=== PATIENT | female | born 1940 ===

== ENCOUNTER 2023-07-20 12:37 | Emergency (ER) | payer OTHER, SELFPAY ==
[2023-07-20 12:39] VITALS: BP 182/105
[2023-07-20 13:45] LABS: % Basophils 0.2 % (0-2); % Eosinophils 0.1 % (0-6); % Immature Granulocytes 0.5 % (0-0.5); % Lymphocytes 10.9 % (20.5-51.1); % Monocytes 8.1 % (1.7-9.3); % Neutrophils 80.2 % (42.2-75.2); Absolute Lymphocytes 0.9 10^3/uL (1.2-3.4); Absolute Monocytes 0.7 10^3/uL (0.1-0.6); Absolute Neutrophils 6.4 10^3/uL (1.4-6.5); Hemoglobin 14.6 g/dL (12.0-16.0); Mean Corp Hgb Conc. 35.6 g/dL (33.0-37.0); Mean Corpuscular Hgb 31.5 pg (27.0-31.0); Mean Corpuscular Volume 88.6 fL (81.0-99.0); Nucleated Red Blood Cells % 0 %; Platelet Count 141 10^3/uL (130-400); Red Blood Cell Count 4.63 10^6/uL (4.20-5.40); Red Cell Dist. Width 12.3 % (11.5-14.5)
[2023-07-20 14:07] LABS: ALT (SGPT) 36 U/L (0-35); AST (SGOT) 34 U/L (14-36); Albumin 3.9 g/dl (3.5-5.0); Alkaline Phosphatase 59 U/L (38-126); Blood Urea Nitrogen 15 mg/dl (7-17); Calcium 9.1 mg/dl (8.4-10.2); Carbon Dioxide 27 mmol/L (22-30); Chloride 104 mmol/L (98-107); Glucose 147 mg/dl (70-99); Potassium 3.6 mmol/L (3.5-5.1); Sodium 136 mmol/L (135-145); Total Bilirubin 2.5 mg/dl (0.2-1.3); Total Protein 7.1 g/dl (6.3-8.2); eGFR > 60.00
--- NOTE | 2023-07-20 14:38 | ED.GENMED ---
History of Present Illness
General
Chief Complaint: Fall
Source: patient and family (Son and [id number] at bedside)
Exam Limitations: none
Time Seen by Provider: 07/20/23 13:01
Nursing documentation reviewed up to this point in time: agreed with
Travel History
Have you had any contact with someone who has COVID-19?: No
Do you have any symptoms of coronavirus? Fever > 100 degrees, chills, cough, shortness of breath, sore throat, loss of taste or smell, muscle aches, or headache?: No
History of Present Illness
History of Present Illness:
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 Family states she typically ambulates well independently without a walker or cane. She lives with her son and [id number]
who are at the bedside. Pt states 2 days ago, she was in kitchen, throwing something away, it missed the can, she leaned over to pick it up and lost her balance and fell. [id number] was in the kitchen but turned the other way, when she turned
around the patient was laying on the floor on her right side to back. There was no loss of consciousness. Her son arrived moments later, helped her up to the chair.
Family state since fall she's been ambulating, doing stairs, etc but her balance seems 'worse' and she's developed a raspy voice past 2 days and they are concerned for pneumonia
There has been no cough, fever, n/v/d/c.
Pt denies H/A, change in vision, she does say left side of neck hurts since the fall.
Past History
Past History
ED Past Medical History: Arrthythmia (Afib on Eliquis), CVA and Hypercholesterolemia
ED Past Surgical History: Gynecological (Hysterectomy)
Social History
Tobacco: Non-smoker
Alcohol: None
Living: with family
Review of Systems
Review of Systems
Allergies reviewed?: Yes
All Other Systems: ROS reviewed and negative except as documented in HPI and ROS
Constitutional: Denies fever
Respiratory: Denies trouble breathing
Cardiac: Denies chest pain, palpitations or syncope
ABD/GI: Denies abdominal pain, nausea, vomiting or diarrhea
: Reports frequency; Denies dysuria, flank pain, incontinence, difficulty voiding or urgency
Musculoskeletal: Reports neck pain (left side neck); Denies edema or back pain
Skin: Reports other (small bruise right lower leg)
Neurological: Denies dizzy, headache, weakness or numbness
Phy Exam
Physical Exam
Physical Exam:
GENERAL: No acute distress. A&Ox3. elderly and frail
CONSTITUTIONAL: Afebrile.
EYES: PERRL, conjunctivae normal
Neck: Supple
ENMT: moist mucus membranes, Pharynx nl
RESPIRATORY: Regular respirations, nonlabored, lungs clear.
CARDIOVASCULAR: Regular rate and rhythm, no murmurs, no rubs.
GI: Soft, nontender, normal BS
MUSCULOSKELETAL: Tender left paracervical ST, no spinal bony tenderness, no axial load tenderness. Rest of back non tender. Extremities without tenderness and with adequate ROM. Mildly (chronic) limited ROM right shoulder. Well perfused.
SKIN: Warm, dry, pink, Small ecchymotic area right harmon
PSYCH: Normal mood and affect. Well kept, interactive and appropriate
NEUROLOGIC: Awake, alert and oriented. Communicates fairly well, some expressive aphasia. Resting tremor of head. Strength equal throughout. Finger to nose intact. No focal neurological deficits
Course
Orders/Labs/Results
Orders:
Orders
07/20/23 13:10
CT Head W/o Iv Contrast Urgent
Comment:
Reason For Exam: fall 2 d ago, eliquis, walking unsteady per son
Cervical Spine wo Contrast CT [CT Cervical Spine W/o Iv Contr] Urgent
Comment:
Reason For Exam: pain neck after fall
07/20/23 13:11
Electrocardiogram (*1) Urgent
Reason for Study: Other
Other Reason for Exam: Fall
EKG- Treatment ONCE
07/20/23 13:12
CR Chest - 2 Views Urgent
Comment:
Reason For Exam: family report raspy voice, fall 2 days ago
07/20/23 13:37
Complete Blood Count/With Diff Urgent
07/20/23 13:38
Comprehensive Metabolic Panel Urgent
07/20/23 14:31
Urinalysis Reflex To Culture Urgent
Date Specimen was Collected: 07/20/23
Time Specimen was Collected: 14:29
Urine Microscopic Reflex Cult Urgent
07/20/23 14:38
Physical Therapy Consult [Pt Eval And Treat] Urgent
Activity Level: As Tolerated
07/20/23 15:24
Acetaminophen [Tylenol] 1,000 mg PO NOW STA
07/20/23 16:14
Dexamethasone Sod Phosphate [Decadron] 10 mg IV NOW STA
Abnormal Lab Results
07/20/23 07/20/23 07/20/23
13:37 13:38 14:31
MCH 31.5 H pg
(27.0-31.0)
MPV 11.0 H fL
(7.4-10.4)
Absolute Lymphs (auto) 0.9 L 10^3/uL
(1.2-3.4)
Absolute Monos (auto) 0.7 H 10^3/uL
(0.1-0.6)
Neutrophils % 80.2 H %
(42.2-75.2)
Lymphocytes % 10.9 L %
(20.5-51.1)
Glucose 147 H mg/dl
(70-99)
Total Bilirubin 2.5 H mg/dl
(0.2-1.3)
ALT 36 H U/L
(0-35)
Ur Occult Blood Reflex 1+ A
(Negative)
07/20/23 13:37
07/20/23 13:38
Vital Signs
Initial and Last Documented VS:
Initial Vital Signs
Temp Pulse Resp BP Pulse Ox
99.9 F 96 24 182/105 97
07/20/23 12:39 07/20/23 12:39 07/20/23 12:39 07/20/23 12:39 07/20/23 12:39
Last Documented Vital Signs
Temp Pulse Resp BP Pulse Ox
99.9 F 80 19 132/78 98
07/20/23 12:39 07/20/23 16:11 07/20/23 16:11 07/20/23 16:11 07/20/23 16:11
MDM/Problems Addressed
Differential Diagnosis Includes:
mechanical fall, CVA, UTI
MDM/Problems Addressed:
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 Family states she typically ambulates well independently without a walker or cane. She lives with her son and [id number]
who are at the bedside. Pt states 2 days ago, she was in kitchen, throwing something away, it missed the can, she leaned over to pick it up and lost her balance and fell. [id number] was in the kitchen but turned the other way, when she turned
around the patient was laying on the floor on her right side to back. There was no loss of consciousness. Her son arrived moments later, helped her up to the chair.
Family state since fall she's been ambulating, doing stairs, etc but her balance seems 'worse' and she's developed a raspy voice past 2 days and they are concerned for pneumonia
There has been no cough, fever, n/v/d/c.
Pt denies H/A, change in vision, she does say left side of neck hurts since the fall.
Afebrile
EKG A fib rate 91
2:44 PM
CBC: No clinically significant abnormality
CMP: Total bilirubin mildly elevated at 2.5 otherwise normal
U/A neg
CXR: Radiology report read: IMPRESSION:
1. Mild cardiomegaly without radiographic evidence for acute pulmonary edema.
2. Minimal left pleural effusion or pleural thickening in the left lateral costophrenic angle.
3. Moderate right convex curvature of the upper thoracic spine and moderate multilevel thoracic discogenic degenerative disease.
CT head reveals no acute abnormality
CT C spine reveals no acute abnormality
4:00 PM
Physical therapy in, patient out of bed and ambulating very well with a walker with wheels. Prescription for walker given and walker provided.
Pt and son instructed to follow up with ortho for neck pain
BP rechecked 132/
*Critical Care Note
Total Time (30-74mins, 75-104mins- exclusive of procedures): Not Applicable
ED Attending Note
-
Portions of this chart may have been created with voice recognition software.� Occasional wrong word or��sound alike� substitutions may have occurred due to the inherent limitations of voice recognition software.
Discharge Plan
Departure
Patient Disposition: Home (Routine Discharge)
Date of Disposition: 07/20/23
Time of Disposition: 16:08
Patient with high blood pressure during this ER visit?: No
Condition: Good
Discharge Problem:
Fall from slip, trip, or stumble, Calcific tendinitis, Contusion of right lower extremity
Instructions: Preventing falls in adults, Tendinopathy (DC), Neck Pain ED
Referrals:
Nelson Aceves III, MD [Family Provider] - Call in 1-3 days for appt
Adriel Watts MD [Active] - Next open appointment
Activity Restrictions/Additional Instructions:
As we discussed, nothing worrisome in your evaluation here today.
Use your walker when up and around to avoid falling.
Your CT scan shows acute calcific tendinitis which is most likely aggravating your neck pain
Tylenol 1000 mg every 6 hours up to 3 times a day as needed for pain.
You were given a steroid (Decadron 10 mg) in your IV to decrease inflammation and hopefully help your pain.
Make appointment with the orthopedic doctor for further evaluation of the neck pain.
Interventions
Interventions:
*General Assessment Last Done: 07/20/23 12:40
ED- Fall Risk Assessment Last Done: 07/20/23 13:41
*ED COVID-19 Vaccine History Last Done: 07/20/23 12:40
*Nursing Disposition Last Done: 07/20/23 16:34
ED-Musculoskeletal Assessment Last Done: 07/20/23 13:41
ED- Neurological Assessment Last Done: 07/20/23 13:41
ED-Skin Assessment Last Done: 07/20/23 13:41
Discharge Date and Time
Discharge Date/Time: 07/20/23 16:35
Print Language: [id number]
[2023-07-20 14:41] LABS: Urine Albumin Negative (Neg - Trace); Urine Bilirubin Negative (Negative); Urine Character Clear (Clear); Urine Color Yellow; Urine Glucose Negative (Negative); Urine Ketone Negative (Negative); Urine Leukocyte Negative (Negative); Urine Nitrite Negative (Negative); Urine Occult Blood 1+ (Negative); Urine Urobilinogen Negative (Neg - 1+); Urine pH 6.5 (5.0-9.0)
[2023-07-20 14:54] LABS: Urine Red Blood Cell 0-2 /HPF (0-2); Urine White Cell None Seen /HPF (0-5)
[2023-07-20] MEDS: TYLENOL 1000 MG PO (15:28)
[2023-07-20 16:11] VITALS: BP 132/78
[2023-07-20] MEDS: DECADRON 10 MG IV (16:21)
== END 2023-07-20 16:35 | disposition home or self-care (01) ==
LOC: EMR 12:37
PROVIDERS: Registered Nurse; EMERGENCY PHYSICIAN Emergency Medicine; FAMILY PHYSICIAN Student in an Organized Health Care Education/Training Program
DX: S80.11XA Contusion of right lower leg, initial encounter (principal); W01.0XXA Fall on same level from slipping, tripping and stumbling without subsequent striking against object, initial encounter; M65.28 Calcific tendinitis, other site; M54.2 Cervicalgia; E78.00 Pure hypercholesterolemia, unspecified; I11.9 Hypertensive heart disease without heart failure; I48.91 Unspecified atrial fibrillation; J90 Pleural effusion, not elsewhere classified; Z86.73 Personal history of transient ischemic attack (TIA), and cerebral infarction without residual deficits; Z79.01 Long term (current) use of anticoagulants
CPT/HCPCS: 99285; 96374; 70450; 71046; 72125; 80053; 81003; 81015; 85025; 93005